=== PATIENT | female | born 1970 | race Hispanic/Latino ===

== ENCOUNTER 2018-07-12 07:57 | Inpatient (IN) | payer OTHER ==
[2018-07-09 14:32] VITALS: BMI 20.7
[2018-07-12 09:11] LABS: BASO % 0.4 % (0.0-2.0); EOS # 0.1 K/uL (0.0-0.7); EOS % 0.8 % (0.0-4.0); HEMOGLOBIN 14.3 g/dL (12.0-16.0); LYMPH # 1.4 K/uL (1.0-4.3); LYMPH % 19.7 % (20.0-40.0); MEAN CELL VOLUME 91.2 fl (81.0-99.0); MEAN CORPUSCULAR HEMOGLOBIN 30.4 pg (27.0-31.0); MEAN CORPUSCULAR HGB CONC 33.3 g/dL (33.0-37.0); MEAN PLATELET VOLUME 8.1 fl (7.2-11.7); MONO # 0.5 K/uL (0.0-0.8); MONO % 7.4 % (0.0-10.0); NEUT # 5.2 K/uL (1.8-7.0); NEUT % 71.7 % (50.0-75.0); NRBC % 0.1 % (0.0-0.0); RBC 4.71 Mil/uL (3.80-5.20); RED CELL DISTRIBUTION WIDTH 13.6 % (11.5-14.5); WHITE BLOOD COUNT 7.2 K/uL (4.8-10.8)
[2018-07-12] MEDS ORDERED: Propofol 10 mg/ml Inj (20 ML) ONE (11:33)
[2018-07-12] MEDS ORDERED: Midazolam 2 MG/2 ML VIAL ONE (11:34)
[2018-07-12] MEDS ORDERED: Succinylcholine 200 mg/10 ml Inj IV ONE (11:34)
[2018-07-12] MEDS ORDERED: Lidocaine 4% (Laryng-O-Jet) Kit MM ONE (11:34)
[2018-07-12] MEDS ORDERED: Rocuronium 10 mg/ml (5 ml) ONE (11:34)
[2018-07-12] MEDS ORDERED: ePHEDrine 50 mg/ml Inj ONE ×2 (11:34→13:34)
[2018-07-12] MEDS ORDERED: ceFAZolin IV 1 gm in Dextrose 2 GM/100 ML BAG IVPB ONE (11:53)
[2018-07-12] MEDS ORDERED: Bupivacaine 0.5% Inj(30mL) ONE (11:53)
[2018-07-12] MEDS ORDERED: Lactated Ringer's 1,000 ML IV ONE ×4 (12:55→15:30)
[2018-07-12] MEDS ORDERED: Dexamethasone 4 mg/1 ml ONE (13:12)
[2018-07-12] MEDS ORDERED: Sodium Chloride 0.9% 1,000 ML IV ONE (14:30)
[2018-07-12] MEDS ORDERED: metroNIDAZOLE 500mg/100ml NS 100 ML IVPB ONE (15:08)
[2018-07-12] MEDS ORDERED: Neostigmine 1:1000 (1 mg/ml) Inj ONE (15:28)
[2018-07-12] MEDS ORDERED: Silver Nitrate Topical - Stick TOP ONE (15:30)
[2018-07-12] MEDS ORDERED: Trimethobenzamide 200 mg/2 mL Inj IM ONE (16:12)
[2018-07-12] MEDS ORDERED: Naloxone 0.4 mg/ml Inj (Adult) IVP PRN (16:13)
[2018-07-12] MEDS: HYDROmorphone 0.5 mg/0.5 ml ISec IVP PRN ×3 (16:13→17:42)
[2018-07-12] MEDS ORDERED: Lactated Ringer's 1,000 ML IV SCH (16:15)
[2018-07-12] MEDS ORDERED: Enoxaparin 30 mg Syringe SC SCH (17:00)
[2018-07-12] MEDS ORDERED: cefOXitin 2 GM in Sodium Chloride 0.9% 100 ML IVPB ONE (19:00)
[2018-07-12] MEDS: Enoxaparin 30 mg Syringe SC SCH (20:54)
[2018-07-13] MEDS: Lactated Ringer's 1,000 ML IV SCH ×3 (02:15→20:31)
[2018-07-13 05:55] LABS: INR 1.2; PROTHROMBIN TIME 13.1 Seconds (9.8-13.1)
[2018-07-13 05:58] LABS: PARTIAL THROMBOPLASTIN TIME 30.7 Seconds (25.6-37.1)
[2018-07-13 06:02] LABS: BLOOD UREA NITROGEN 9 mg/dl (7-17); CALCIUM 7.9 mg/dL (8.4-10.2); GFR NON-AFRICAN AMERICAN > 60
[2018-07-13 06:04] LABS: BASO % 0.2 % (0.0-2.0); LYMPH # 0.8 K/uL (1.0-4.3); LYMPH % 11.2 % (20.0-40.0); MEAN CELL VOLUME 91.7 fl (81.0-99.0); MEAN CORPUSCULAR HEMOGLOBIN 30.6 pg (27.0-31.0); MEAN CORPUSCULAR HGB CONC 33.4 g/dL (33.0-37.0); MEAN PLATELET VOLUME 8.3 fl (7.2-11.7); MONO # 0.7 K/uL (0.0-0.8); MONO % 9.8 % (0.0-10.0); NEUT # 5.6 K/uL (1.8-7.0); NEUT % 78.8 % (50.0-75.0); RBC 3.4 Mil/uL (3.80-5.20); RED CELL DISTRIBUTION WIDTH 13.5 % (11.5-14.5); WHITE BLOOD COUNT 7.1 K/uL (4.8-10.8)
[2018-07-13 06:07] LABS: HEMOGLOBIN 10.4 g/dL (12.0-16.0)
--- NOTE | 2018-07-13 07:37 | CP.PCM.PN ---
Subjective - Date & Time of Evaluation Date of Evaluation: 07/13/18 Time of Evaluation: 07:33 - Subjective Subjective: Surgery: Dr. Geiger Pt seen and examined. No acute events overnight. Pt has some pain, responds to meds. She states that she is thirsty. No Flatus/BM yet. Objective - Vital Signs/Intake and Output Vital Signs (last 24 hours): Temp Pulse Resp BP Pulse Ox 99 F 67 18 96/54 L 100 07/13/18 00:00 07/13/18 06:00 07/13/18 06:00 07/13/18 06:00 07/13/18 06:00 Intake and Output: 07/13/18 07/13/18 06:59 18:59 Intake Total 1450 Output Total 500 Balance 950 - Medications Medications: Current Medications Enoxaparin Sodium (Lovenox) 30 mg SC BID@0900,2100 [facility]; Protocol Last Admin: 07/12/18 20:54 Dose: 30 mg Hydromorphone HCl (Dilaudid 0.2 Mg/Ml Public Policy Professor) 0 mg IV PRN PRN; Protocol PRN Reason: Pain, moderate (4-7) Last Admin: 07/12/18 18:08 Dose: 0 mg Acetaminophen (Ofirmev) 100 mls @ 400 mls/hr IVPB Q6H [facility]; Protocol Stop: 07/13/18 15:16 Last Admin: 07/13/18 03:00 Dose: 400 mls/hr Lactated Ringer's (Lactated Ringer's) 1,000 mls @ 100 mls/hr IV .Q10H [facility] Last Admin: 07/13/18 02:15 Dose: 100 mls/hr Lactated Ringer's (Lactated Ringer's) 1,000 mls @ 100 mls/hr IV .Q10H [facility] Last Admin: 07/13/18 02:15 Dose: Not Given Naloxone HCl (Narcan) 0.1 mg IVP Q2M PRN PRN Reason: Shortness of Breath Ondansetron HCl (Zofran Inj) 4 mg IVP Q6 PRN PRN Reason: Nausea/Vomiting - Labs Labs: 07/13/18 04:45 07/13/18 04:45 PT 13.1 Seconds (9.8-13.1) 07/13/18 04:45 INR 1.2 07/13/18 04:45 APTT 30.7 Seconds (25.6-37.1) 07/13/18 04:45 - Constitutional Appears: Non-toxic, No Acute Distress - Head Exam Head Exam: ATRAUMATIC, NORMOCEPHALIC - Eye Exam Eye Exam: EOMI - ENT Exam ENT Exam: Mucous Membranes Moist - Neck Exam Neck Exam: Full ROM - Respiratory Exam Respiratory Exam: NORMAL BREATHING PATTERN. absent: Accessory Muscle Use, Respiratory Distress - GI/Abdominal Exam GI & Abdominal Exam: Soft, Tenderness (armando-incisional ). absent: Distended, Firm, Guarding, Rigid, Rebound - Extremities Exam Extremities Exam: absent: Calf Tenderness, Pedal Edema - Neurological Exam Neurological Exam: Alert, Awake, Oriented x3 - Psychiatric Exam Psychiatric exam: Normal Affect, Normal Mood - Skin Skin Exam: Dry, Normal Color, Warm Assessment and Plan - Assessment and Plan (Free Text) Assessment: 47F POD#1 robotic assisted removal of endometrial implants, sigmoidectomy, and repair of iliac vein injury -will start CLD -1L NS bolus -c/w pain management -encourage OOB to chair/ambulation and IS use -d/w attending Zemaitis PGY4
[2018-07-13] MEDS ORDERED: Sodium Chloride 0.9% 1,000 ML IV SCH (07:45)
--- NOTE | 2018-07-13 07:45 | OP ---
PROCEDURE DATE: 07/12/2018 SURGEON: Jesus Hurst MD INVESTMENT ACCOUNTANT: Greg Geiger MD ANESTHESIOLOGIST: Maria Fernanda GARCIA,Moncho Osei MD, [place] TYPE OF ANESTHESIA: General endotracheal. PREOPERATIVE DIAGNOSES: 1. Incapacitating pelvic pain. 2. Incapacitating abdominal pain. 3. Abnormal uterine bleeding. 4. History of pelvic endometriosis. 5. History of previously failed medical and surgical therapy. 6. Gastrointestinal and genitourinary symptoms. 7. Rule out interstitial cystitis. 8. History of severe endometriosis and pelvic adhesions 9: right ovarian endometrioma 11: recurrent diverticulitis/diverticulosis POSTOPERATIVE DIAGNOSES: 1. Incapacitating pelvic pain. 2. Incapacitating abdominal pain. 3. Abnormal uterine bleeding. 4. History of pelvic endometriosis. 5. History of previously failed medical and surgical therapy. 6. History of severe endometriosis and pelvic adhesions. 7. Gastrointestinal and genitourinary symptoms. 8. Mild ureteral distention. 9. right ovarian endometrioma 10: recurrent diverticulitis/diverticulosis PROCEDURES PERFORMED: 1. Exam under anesthesia. 2. Video assisted hysteroscopy. 3. Cystoscopy. 4. Bilateral ureteral catheterization and injection of IC-Green dye. 5. Robotic da Garret operative laparoscopy. 6. Treatment of endometriosis. 7. Excision of endometriosis. 8. Bilateral ureterolysis. 9. Bilateral ovariolysis. 10: right ovarian cystectomy Dr Geiger to dictate separately sigmoidectomy COMPLICATIONS: None. SAMPLES SENT: multiple samples containing endometriosis and ovarian cyst INDICATION FOR THE PROCEDURE AND CONSENT: The patient had a long history of pelvic pain, dysmenorrhea, dyspareunia, abdominal pain, and bladder pain. The patient had been thoroughly evaluated and counseled regarding the pros and cons of the procedure, the reasonable alternatives, and possible complications. She understood and accepted the risks involved. Literature was provided to the patient. The patient was understanding and given her history and per surgical exam, she was at high risk in an average patient. She accepted all the risks involved, and all the questions had been answered to her satisfaction. FINDINGS OF SURGERY: Genitalia: Normal external genitalia, cervix without lesion and polyps. Hysteroscopy: Hysteroscopy shows a clear uterine cavity with no polyps or masses noticed. Cystoscopy: The cystoscopy was performed to rule out endometriosis and also any interstitial cystitis and also injury. The bladder was normal with no evidence of stone, trigonitis, or cystitis. A positive jet flow was identified in both ureters. Laparoscopy: The upper abdomen appeared to be normal. Gallbladder was normal. Liver edges appeared to be normal. Ascending colon and transverse were normal. There was evidence of adhesions, fibrosis, and endometriosis of the rectovaginal and pelvic sidewalls. Both fallopian tubes appeared to be patent, although there was evidence of inflammation on the serosal surface of both fallopian tubes, and there was slight conglutination of both fimbriated ends although they both appeared to be functional. There was also evidence of mild hydroureters. DESCRIPTION OF THE PROCEDURE: Initiation of the case: After adequate anesthesia was obtained, the patient was placed in the dorsal lithotomy position, and with extreme care, placement of the patient with hyperextension and hyperflexing of the hips. At this point, the patient was prepped and draped. The surgeon was gowned and gloved. A timeout was taken according to the hospital procedure and the procedure was started. At this point, we performed cystoscopy, bilateral ureteral catheterization. A cystoscope was inserted into the bladder under direct visualization and the bladder was visualized. The bladder was free of lesions and tumors. There was no evidence of interstitial cystitis, and there was only mild amount of trigonitis. At this point, both ureters were identified and appeared to be in their normal anatomical position. At this point, utilizing an open 5-Estonian open-ended catheter, the left ureter was catheterized all the way to the distal ureter, and 5 mL of IC-Green was injected into this ureter. Similarly, the contralateral ureter was catheterized all the way to the distal ureter, and 5 mL of IC-Green was injected into the distal ureter. At this point, the stents were removed, and the cystoscope was removed, and the 16-Estonian Mckenna was inserted into the bladder. At this point, we proceeded with a hysteroscopy. A speculum was placed into vagina, and the anterior lip of the cervix was grasped. The cervix was dilated, and a hysteroscope was inserted into the cavity. The cavity appeared to be of normal size with no evidence of polyps, cysts, adenomyosis, or fibroids. At this point, we proceeded with placement of a trocar and docking of the da Garret Xi robot. The surgeon was re-gowned and gloved, and open laparoscopy was performed by making incision in the umbilicus and the fascia was incised. The peritoneum was entered in a blunt fashion, and the cannula was inserted under direct visualization. The abdomen was insufflated, and under direct visualization, three additional ports were inserted in the left upper quadrant, left mid quadrant, and right upper quadrant. At this point, the da Garret Xi robot was brought into the field and docked, and the instruments were inserted under direct visualization. All this with extreme care not to injure the bowel or another area. As per dictation, the upper abdomen appeared to be normal with no evidence of any lesions. At this point, we proceeded with a left ureterolysis. The ureter appeared to be dilated and was clearly identified utilizing IC-Green fluorescent technology. Anesthesia was made in the peritoneum at the top of the pelvic brim, and the incision was then carried down all the way opening the peritoneum all the way down from the pelvic brim, all the way down to the ovarian fossa, extending the incision below the ovary. It was a progressive dissection where the ureter was progressively lateralized and peritoneum was medialized, thus freeing the ureter all the way down to the cross of the uterine vessels. After this was done, the ureter was freed and lateralized, and a larger peritoneum which had been opened, was excised, and sent to pathology. At this point, with the aid of very slow process, I was able to elevate the ovary and proceed with ovariolysis. At this point, we proceeded with a left ovariolysis. The left ovary was adherent to the posterior aspect of the uterus. It was gently dissected in a step by step way. It was peeled off, the ovarian fossa, andan area of extensive fibrosis and endometriosis was exposed. At this point, we proceeded with a right ureterolysis. The ureter was identified again utilizing fluorescent technology on the right hand side and retroperitoneal space was entered, and a full dissection was performed,entering the retroperitoneal space and dissecting the ureter, removing the ureter laterally and the peritoneum medially. A full dissection was performed all the way down to the ovarian fossa and the crossing of the uterine arteries. An area of peritoneum containing endometriosis was dissected and sent to Pathology. At this point, we proceeded with a right ovariolysis. The right ovary was adherent to the peritoneum. It was gently elevated progressively, and dissected off from the peritoneal area. All this done with extreme care to preserve vascularization to the ovary. At this point, we proceeded with a right ovarian cystectomy An ovarian endometrioma was gently peeled of the right ovary and sent to pathology At this point, we proceeded with treatment of endometriosis and excision of endometriosis. On the left hand side, fibrosis, especially in the left ovarian fossa was excised. In a very progressive step by step fashion, we dissected off fibrosis containing endometriosis and freed up the whole area. The ureters which had been lateralized. Areas of fibrosis and endometriosis were also identified in the posterior cul-de-sac and in the rectovaginal space which was also affected with endometriosis and fibrosis. At this point, we handed the robotic console to Dr. Worthington from general surgery for continuation of the procedure. He will dictate separately. Natali GARCIA, Jesus GARDNER
[2018-07-13] MEDS: Enoxaparin 30 mg Syringe SC SCH ×2 (09:29→21:38)
[2018-07-13] MEDS ORDERED: METOPROLOL SUCCINATE 25 MG PO SCH (12:30)
--- NOTE | 2018-07-13 14:03 | US ---
Date of service: 07/13/2018 PROCEDURE: Bilateral lower extremity venous duplex Doppler. HISTORY: r/o LE DVT, s/p L iliac vein repair COMPARISON: None available. TECHNIQUE: Bilateral common femoral, superficial femoral, popliteal and posterior tibial veins were evaluated. Flow was assessed with color Doppler, compressibility, assessment of phasic flow and augmentation response. FINDINGS: COMMON FEMORAL VEIN: Right CFV: Unremarkable. Left CFV: Unremarkable. SUPERFICIAL FEMORAL VEIN: Right SFV: Unremarkable. Left SFV: Unremarkable. POPLITEAL VEIN: Right Popliteal: Unremarkable. Left Popliteal: Unremarkable. POSTERIOR TIBIAL VEIN: Right PTV: Unremarkable. Left PTV: Unremarkable. OTHER FINDINGS: None. IMPRESSION: No evidence of deep venous thrombosis.
[2018-07-13] MEDS: Metoprolol Succinate 25 mg XL Tab PO SCH (14:17)
[2018-07-14] MEDS: Lactated Ringer's 1,000 ML IV SCH (06:30)
[2018-07-14 07:19] LABS: BASO % 0.2 % (0.0-2.0); EOS % 0.1 % (0.0-4.0); LYMPH # 0.5 K/uL (1.0-4.3); MEAN CELL VOLUME 90.6 fl (81.0-99.0); MEAN CORPUSCULAR HGB CONC 34.2 g/dL (33.0-37.0); MEAN PLATELET VOLUME 7.8 fl (7.2-11.7); MONO # 0.3 K/uL (0.0-0.8); MONO % 5.4 % (0.0-10.0); NEUT # 4.3 K/uL (1.8-7.0); NEUT % 84.3 % (50.0-75.0); RBC 3.22 Mil/uL (3.80-5.20); RED CELL DISTRIBUTION WIDTH 13.2 % (11.5-14.5); WHITE BLOOD COUNT 5.1 K/uL (4.8-10.8)
[2018-07-14 07:39] LABS: BLOOD UREA NITROGEN 4 mg/dl (7-17); CALCIUM 8.1 mg/dL (8.4-10.2); GFR NON-AFRICAN AMERICAN > 60
--- NOTE | 2018-07-14 08:31 | CP.PCM.PN ---
Subjective - Date & Time of Evaluation Date of Evaluation: 07/14/18 Time of Evaluation: 07:01 - Subjective Subjective: Surgery Progress Note- Dr. Geiger Patient seen and examined at bedside. Have 2 episodes of serobilious, non-bloody emesis yesterday. Currently resolved w/ zofran and Tigan. Patient expressed this happens when on a CLD and using opiates. Pain currently controlled with Dilaudid BAR HELPER used only twice overnight. Passed flatus, no BM. CHERYL drain RLQ in place, 70cc/24hr serosang fluid. Denies Fevers/chills/chest pain/light headedness/dizziness/LOC/numbness/tingling in extremities. Objective - Vital Signs/Intake and Output Vital Signs (last 24 hours): Temp Pulse Resp BP Pulse Ox 100.1 F H 86 20 124/78 98 07/14/18 05:00 07/14/18 05:00 07/14/18 05:00 07/14/18 05:00 07/14/18 05:00 Intake and Output: 07/14/18 07/14/18 06:59 18:59 Intake Total 1250 Output Total 195 Balance 1055 - Medications Medications: Current Medications Enoxaparin Sodium (Lovenox) 30 mg SC BID@0900,2100 [facility]; Protocol Last Admin: 07/13/18 21:38 Dose: 30 mg Famotidine (Pepcid) 20 mg PO DAILY [facility] Last Admin: 07/13/18 14:17 Dose: 20 mg Lactated Ringer's (Lactated Ringer's) 1,000 mls @ 100 mls/hr IV .Q10H [facility] Last Admin: 07/14/18 06:30 Dose: 100 mls/hr Lactated Ringer's (Lactated Ringer's) 1,000 mls @ 100 mls/hr IV .Q10H [facility] Last Admin: 07/13/18 02:15 Dose: Not Given Metoprolol Succinate (Toprol Xl) 25 mg PO DAILY [facility] Last Admin: 07/13/18 14:17 Dose: 25 mg Naloxone HCl (Narcan) 0.1 mg IVP Q2M PRN PRN Reason: Shortness of Breath Ondansetron HCl (Zofran Inj) 4 mg IVP Q4 [facility] - Labs Labs: 07/14/18 05:30 07/14/18 05:30 PT 13.1 Seconds (9.8-13.1) 07/13/18 04:45 INR 1.2 07/13/18 04:45 APTT 30.7 Seconds (25.6-37.1) 07/13/18 04:45 - Constitutional Appears: Non-toxic, No Acute Distress - Head Exam Head Exam: ATRAUMATIC - Eye Exam Eye Exam: EOMI. absent: Scleral icterus - ENT Exam ENT Exam: Mucous Membranes Moist - Respiratory Exam Respiratory Exam: NORMAL BREATHING PATTERN. absent: Accessory Muscle Use, Respiratory Distress - Cardiovascular Exam Cardiovascular Exam: +S1, +S2. absent: Bradycardia, Tachycardia - GI/Abdominal Exam GI & Abdominal Exam: Soft, Tenderness (appropriately tender around incision), Normal Bowel Sounds. absent: Distended, Firm, Guarding, Rigid Additional comments: dressings C/D/I no strikethrough - Rectal Exam Rectal Exam: Deferred - Extremities Exam Extremities Exam: absent: Calf Tenderness - Neurological Exam Neurological Exam: Alert, Awake, Oriented x3 - Psychiatric Exam Psychiatric exam: Normal Affect - Skin Skin Exam: Intact, Warm Assessment and Plan - Assessment and Plan (Free Text) Assessment: 47F s/p robotic assisted removal of endometrial implants, sigmoidectomy, and repair of iliac vein injury on 07/12; POD#2 Plan: - Pain control PRN; will de-escalate from Dilaudid BAR HELPER - Encourage IS use - Monitor for bowel function - I/O; CHERYL drain - aggressive PT, OOB - CLD for now, will consider advancing once bowel function has returned. - monitor H/H PGY2
[2018-07-14] MEDS ORDERED: Potassium Chloride 20 mEq/15 ml LIQ UD PO ONE (09:14)
[2018-07-14] MEDS ORDERED: Potassium Chloride 20 mEq ER Tab PO ONE (09:14)
[2018-07-14] MEDS: Metoprolol Succinate 25 mg XL Tab PO SCH (10:44)
[2018-07-14] MEDS: Enoxaparin 30 mg Syringe SC SCH ×2 (10:48→21:17)
[2018-07-14] MEDS: Potassium Ch 20mEq in D5-1/2NS 1,000 ML IV SCH (18:59)
[2018-07-14] MEDS: oxyCODONE 5 mg Immediate Release Tab PO PRN (20:25)
[2018-07-15] MEDS: oxyCODONE 5 mg Immediate Release Tab PO PRN ×2 (01:49→11:42)
[2018-07-15 07:38] LABS: BLOOD UREA NITROGEN 4 mg/dl (7-17); CALCIUM 8.5 mg/dL (8.4-10.2); GFR NON-AFRICAN AMERICAN > 60
[2018-07-15] MEDS: Enoxaparin 30 mg Syringe SC SCH ×2 (08:25→20:59)
--- NOTE | 2018-07-15 08:28 | CP.PCM.PN ---
Subjective - Date & Time of Evaluation Date of Evaluation: 07/15/18 Time of Evaluation: 08:26 - Subjective Subjective: SURGERY PROGRESS NOTE FOR DR. DIAZ 47F seen and examined at bedside. No acute events overnight. Patient tolerating mechanical soft diet, denies any nausea or vomiting, denies any fevers or chills. Patient admits to flatus and passing clots per rectum. Denies stool bowel movements. She denies leg pain. Objective - Vital Signs/Intake and Output Vital Signs (last 24 hours): Temp Pulse Resp BP Pulse Ox 98.2 F 64 20 126/78 99 07/15/18 04:54 07/15/18 04:54 07/15/18 04:54 07/15/18 04:54 07/15/18 04:54 Intake and Output: 07/15/18 07/15/18 06:59 18:59 Intake Total Output Total Balance - Medications Medications: Current Medications Acetaminophen (Tylenol 325mg Tab) 650 mg PO Q8 [facility] Stop: 07/16/18 09:01 Last Admin: 07/15/18 01:00 EST Dose: Not Given Enoxaparin Sodium (Lovenox) 30 mg SC BID@0900,2100 [facility]; Protocol Last Admin: 07/15/18 08:25 Dose: 30 mg Famotidine (Pepcid) 20 mg PO DAILY [facility] Last Admin: 07/15/18 08:24 Dose: 20 mg Potassium Chloride/Dextrose/Sod Cl (Potassium Chl 20 Meq In D5-1/2ns) 1,000 mls @ 50 mls/hr IV .Q20H [facility] Stop: 07/15/18 17:46 Last Admin: 07/14/18 18:59 Dose: 50 mls/hr Ketorolac Tromethamine (Toradol) 30 mg IVP Q6 [facility] Stop: 07/16/18 04:01 Last Admin: 07/15/18 05:17 Dose: 30 mg Metoprolol Succinate (Toprol Xl) 25 mg PO DAILY [facility] Last Admin: 07/14/18 10:44 Dose: 25 mg Morphine Sulfate (Morphine) 4 mg IVP Q4 PRN PRN Reason: Pain, moderate (4-7) Naloxone HCl (Narcan) 0.1 mg IVP Q2M PRN PRN Reason: Shortness of Breath Ondansetron HCl (Zofran Inj) 4 mg IVP Q4 [facility] Last Admin: 07/15/18 08:24 Dose: 4 mg Oxycodone HCl (Oxycodone Immediate Release Tab) 5 mg PO Q6 PRN PRN Reason: Pain, moderate (4-7) Last Admin: 07/15/18 01:49 EST Dose: 5 mg - Labs Labs: 07/14/18 05:30 07/15/18 05:30 PT 13.1 Seconds (9.8-13.1) 07/13/18 04:45 INR 1.2 07/13/18 04:45 APTT 30.7 Seconds (25.6-37.1) 07/13/18 04:45 - Constitutional Appears: Non-toxic, No Acute Distress - Head Exam Head Exam: ATRAUMATIC - Eye Exam Eye Exam: EOMI, PERRL - Respiratory Exam Respiratory Exam: Clear to Ausculation Bilateral, NORMAL BREATHING PATTERN - Cardiovascular Exam Cardiovascular Exam: REGULAR RHYTHM, +S1, +S2 - GI/Abdominal Exam GI & Abdominal Exam: Soft. absent: Firm, Guarding, Rigid, Tenderness, Rebound Additional comments: dressings CDI Drain output - 150cc/24hrs serosanguinous - Extremities Exam Extremities Exam: absent: Pedal Edema, Tenderness - Neurological Exam Neurological Exam: Alert, Awake, Normal Gait, Oriented x3 - Skin Skin Exam: Dry, Intact, Normal Color, Warm Assessment and Plan - Assessment and Plan (Free Text) Assessment: 47F s/p robotic assisted removal of endometrial implants, sigmoidectomy, and r epair of iliac vein injury on 07/12; POD#3 Plan: Pain control Advance diet as tolerated Anti-emetics Monitor drain output Monitor for bowel functions Pending repeat lower extremity US to r/o DVT Further recs discuss with Dr. Fely Adler, PGY3
[2018-07-15] MEDS: Metoprolol Succinate 25 mg XL Tab PO SCH (09:44)
[2018-07-15] MEDS: Potassium Ch 20mEq in D5-1/2NS 1,000 ML IV SCH (17:08)
--- NOTE | 2018-07-16 07:36 | CP.PCM.PN ---
Subjective - Date & Time of Evaluation Date of Evaluation: 07/16/18 Time of Evaluation: 07:34 - Subjective Subjective: Surgery: Dr. Geiger Pt seen and examined. Resting comfortably in bed. Pain controlled. Tolerating regular diet. No vomiting. Passing flatus. No BM. Ambulating without difficulty. Objective - Vital Signs/Intake and Output Vital Signs (last 24 hours): Temp Pulse Resp BP Pulse Ox 98.4 F 81 20 140/79 100 07/16/18 04:37 07/16/18 04:37 07/16/18 04:37 07/16/18 04:37 07/16/18 04:37 Intake and Output: 07/16/18 07/16/18 06:59 18:59 Intake Total 550 Output Total 60 Balance 490 - Medications Medications: Current Medications Acetaminophen (Tylenol 325mg Tab) 650 mg PO Q8 [facility] Stop: 07/16/18 09:01 Last Admin: 07/16/18 00:57 Dose: Not Given Docusate Sodium (Colace) 100 mg PO TID [facility] Famotidine (Pepcid) 20 mg PO DAILY [facility] Last Admin: 07/15/18 08:24 Dose: 20 mg Metoprolol Succinate (Toprol Xl) 25 mg PO DAILY [facility] Last Admin: 07/15/18 09:44 Dose: 25 mg Morphine Sulfate (Morphine) 4 mg IVP Q4 PRN PRN Reason: Pain, moderate (4-7) Naloxone HCl (Narcan) 0.1 mg IVP Q2M PRN PRN Reason: Shortness of Breath Ondansetron HCl (Zofran Inj) 4 mg IVP Q4 PRN PRN Reason: Nausea/Vomiting Ondansetron HCl (Zofran Inj) 4 mg IVP Q4 PRN PRN Reason: Nausea/Vomiting Oxycodone HCl (Oxycodone Immediate Release Tab) 5 mg PO Q6 PRN PRN Reason: Pain, moderate (4-7) Last Admin: 07/15/18 11:42 Dose: 5 mg - Labs Labs: 07/14/18 05:30 07/15/18 05:30 PT 13.1 Seconds (9.8-13.1) 07/13/18 04:45 INR 1.2 07/13/18 04:45 APTT 30.7 Seconds (25.6-37.1) 07/13/18 04:45 - Constitutional Appears: Non-toxic, No Acute Distress - Head Exam Head Exam: ATRAUMATIC, NORMOCEPHALIC - Eye Exam Eye Exam: EOMI - ENT Exam ENT Exam: Mucous Membranes Moist - Respiratory Exam Respiratory Exam: NORMAL BREATHING PATTERN. absent: Accessory Muscle Use, Respiratory Distress - GI/Abdominal Exam GI & Abdominal Exam: Soft, Tenderness (armando-incisional ). absent: Distended, Firm, Guarding, Rigid, Rebound Additional comments: incisions C/D/I Chente RLQ 60cc/12hr serosang - Extremities Exam Extremities Exam: Pedal Edema. absent: Calf Tenderness Additional comments: distal pulse palpable - Neurological Exam Neurological Exam: Alert, Awake, Oriented x3 - Psychiatric Exam Psychiatric exam: Normal Affect, Normal Mood - Skin Skin Exam: Dry, Normal Color, Warm Assessment and Plan - Assessment and Plan (Free Text) Assessment: 47F s/p robotic assisted removal of endometrial implants, sigmoidectomy, and repair of iliac vein injury on 07/12; POD#4 -F/U duplex -monitor bowel fxn -c/w colace -encourage OOB and ambulation -d/w attending Iris PGY4
[2018-07-16] MEDS: Metoprolol Succinate 25 mg XL Tab PO SCH (09:20)
--- NOTE | 2018-07-16 09:29 | US ---
Date of service: 07/16/2018 PROCEDURE: Bilateral lower extremity venous duplex Doppler. HISTORY: s/p iliac vein repair COMPARISON: None available. TECHNIQUE: Bilateral common femoral, superficial femoral, popliteal and posterior tibial veins were evaluated. Flow was assessed with color Doppler, compressibility, assessment of phasic flow and augmentation response. FINDINGS: COMMON FEMORAL VEIN: Right CFV: Unremarkable. Left CFV: Unremarkable. SUPERFICIAL FEMORAL VEIN: Right SFV: Unremarkable. Left SFV: Unremarkable. POPLITEAL VEIN: Right Popliteal: Unremarkable. Left Popliteal: Unremarkable. POSTERIOR TIBIAL VEIN: Right PTV: Unremarkable. Left PTV: Unremarkable. OTHER FINDINGS: None. IMPRESSION: No sonographic evidence of deep venous thrombosis bilateral lower extremities.
[2018-07-16] MEDS ORDERED: Oxycodone/Acetaminophen 5/325 mg Tab PO PRN (12:32)
[2018-07-16] MEDS: Enoxaparin 30 mg Syringe SC SCH ×2 (16:06→21:55)
[2018-07-17] MEDS: Metoprolol Succinate 25 mg XL Tab PO SCH (09:44)
[2018-07-17] MEDS: Enoxaparin 30 mg Syringe SC SCH (09:45)
--- NOTE | 2018-07-17 09:50 | CP.PCM.PN ---
Subjective - Date & Time of Evaluation Date of Evaluation: 07/17/18 Time of Evaluation: 09:47 - Subjective Subjective: Surgery: Dr. Geiger Pt seen and examined. Resting comfortably in bed. Tolerating diet. No N/V/D. Passing flatus. No BM. Ambulating w. out difficulty. Objective - Vital Signs/Intake and Output Vital Signs (last 24 hours): Temp Pulse Resp BP Pulse Ox 99.5 F 82 20 130/85 98 07/17/18 05:00 07/17/18 09:44 07/17/18 05:00 07/17/18 09:44 07/17/18 05:00 Intake and Output: 07/17/18 07/17/18 06:59 18:59 Intake Total 980 Output Total 135 Balance 845 - Medications Medications: Current Medications Docusate Sodium (Colace) 100 mg PO TID [facility] Last Admin: 07/17/18 09:43 Dose: 100 mg Enoxaparin Sodium (Lovenox) 30 mg SC Q12 [facility]; Protocol Last Admin: 07/17/18 09:45 Dose: 30 mg Famotidine (Pepcid) 20 mg PO DAILY [facility] Last Admin: 07/17/18 09:44 Dose: 20 mg Metoprolol Succinate (Toprol Xl) 25 mg PO DAILY [facility] Last Admin: 07/17/18 09:44 Dose: 25 mg Naloxone HCl (Narcan) 0.1 mg IVP Q2M PRN PRN Reason: Shortness of Breath Ondansetron HCl (Zofran Inj) 4 mg IVP Q4 PRN PRN Reason: Nausea/Vomiting Ondansetron HCl (Zofran Inj) 4 mg IVP Q4 PRN PRN Reason: Nausea/Vomiting Oxycodone HCl (Oxycodone Immediate Release Tab) 5 mg PO Q6 PRN PRN Reason: Pain, moderate (4-7) Last Admin: 07/15/18 11:42 Dose: 5 mg Oxycodone/Acetaminophen (Percocet 5/325 Mg Tab) 1 tab PO Q6 PRN PRN Reason: pain Stop: 07/19/18 12:33 Last Admin: 07/16/18 12:58 Dose: 1 tab - Labs Labs: 07/14/18 05:30 07/15/18 05:30 PT 13.1 Seconds (9.8-13.1) 07/13/18 04:45 INR 1.2 07/13/18 04:45 APTT 30.7 Seconds (25.6-37.1) 07/13/18 04:45 - Constitutional Appears: Non-toxic, No Acute Distress - Head Exam Head Exam: ATRAUMATIC, NORMOCEPHALIC - Eye Exam Eye Exam: EOMI - ENT Exam ENT Exam: Mucous Membranes Moist - Neck Exam Neck Exam: Full ROM - Respiratory Exam Respiratory Exam: NORMAL BREATHING PATTERN. absent: Accessory Muscle Use, Respiratory Distress - GI/Abdominal Exam GI & Abdominal Exam: Soft, Tenderness (armando-incisional ). absent: Distended, Firm, Guarding, Rigid, Rebound - Extremities Exam Extremities Exam: absent: Calf Tenderness, Pedal Edema - Neurological Exam Neurological Exam: Alert, Awake, Oriented x3 Assessment and Plan - Assessment and Plan (Free Text) Assessment: 47F s/p robotic assisted removal of endometrial implants, sigmoidectomy, and repair of iliac vein injury on 07/12; POD#5 -Chente 40cc/12hr serosang, will D/C -U/S no DVT LE -clear for D/C from surgical standpoint -recommend baby ASA BID upon D/C until f/u appointment -d/w attending Zemaitis PGY4
[2018-07-17 10:33] LABS: HEMOGLOBIN 10.4 g/dL (12.0-16.0); MEAN CORPUSCULAR HEMOGLOBIN 30.7 pg (27.0-31.0); RBC 3.38 Mil/uL (3.80-5.20); RED CELL DISTRIBUTION WIDTH 13.6 % (11.5-14.5); WHITE BLOOD COUNT 3.8 K/uL (4.8-10.8)
[2018-07-17 10:42] LABS: BLOOD UREA NITROGEN 4 mg/dl (7-17); CALCIUM 8.5 mg/dL (8.4-10.2); GFR NON-AFRICAN AMERICAN > 60
[2018-07-17 10:43] VITALS: RESP 16; O2SAT 99
[2018-07-17 17:23] VITALS: BP 130/78; PULSE 78; TEMP 98.4
--- NOTE | 2018-07-19 11:27 | PCM.OP ---
Operative Report - Operative Report Date of Surgery/Procedure: 07/12/18 Time of Surgery/Procedure: 11:00 Surgeon: Dr. Greg Geiger Nailer Hand: Dr. Jesus Hurst Anesthesia/Sedation: general/Dr. Irving Pre-Operative Diagnosis: abdominal pain, ednometriosis and acute/chronic diverticulitis Post-Operative Diagnosis: Acte/Chronic diverticulitis Indication for Surgery: Acute/Chronic diverticulitis Operative Findings: Acute inflammation sigmoid colon involving the left ureter and left iliac vein Procedure/Operation Description: 1-left sigmoid colectomy with takedown splenic flexure 2-Repair iliac vein 3-left ureterolysis Brief History: This 89 year old woman was admitted by Dr. Hurst with history of endometriosis and multiple episodes of abdominal pain from acute diverticulitis with multiple hospitalizations when she was treated expectantly with antibiotics. Presently the symptoms had persisted and she has persistent abdominal and pelvic pain. Dr. Hurst intiated the robotic procedure and requested an intraoperative consultation to evaluate the sigmoid colon. Description of the Procedure: The patient had already been brought to the operating room by Dr. Hurst (separate dictation Dr. Hurst). After taking control of the robotic console the sigmoid colon was mobilized from the proximal colon distally and the retroperitoneum was entered and the left ureter was carefully dissected and from the colon. The dissection continued inferiorly and distally with exposure of the left iliac vein. During the dissection a small rent was noted in the left iliac vein and immediately clamped. The robot was disconnected, trocars were removed and the left iliac vein was repaired with multiple interrupted 3-0 vicryl sutures. Hemostasis was achieved and deemed adequate. The sigmoid and a portion of the descending colon were further mobilized to the level of the splenic flexure. The rectum was mobilized in a similar fashion. The colon was transected both distally and proximally with CATRACHITA stapler. The mesentery was dissected with Ligasure and the specimen was removed and sent to pathology separately. The colon anastomosis was created in two layers with continuous 3-0 vicryl for the mucosa and interrupted 3-0 vicryl for the serosa. Hmostasis was deemed adeqaute and all counts were correct. A 19F Chente drain was placed and secured to the skin with 3-0 nylon. The fascia was closed with 0PDS and 4-0 monocryl for the skin. A clean dressing was applied and the patient was awakened, extubated and brought to the recovery room in stable condition. Estimated Blood Loss: 250 cc Drains: Chente 19F Complications: none Specimen: left sigmoid colon Discharge & Condition: stable
== END 2018-07-17 16:45 | disposition home or self-care (01) | DRG 742 ==
LOC: H.OPSURG 07:57 → H.ICU/CCU 16:08 → H.PEDS 07-13 16:20
PROVIDERS: ADMIT Obstetrics & Gynecology Reproductive Endocrinology; ATTEND Obstetrics & Gynecology Reproductive Endocrinology
PROC: 0UN20ZZ Release Bilateral Ovaries, Open Approach (ICD-10-PCS; 2018-07-12)
PROC: 0TN70ZZ Release Left Ureter, Open Approach (ICD-10-PCS; 2018-07-12)
PROC: 0TN60ZZ Release Right Ureter, Open Approach (ICD-10-PCS; 2018-07-12)
PROC: 06QD0ZZ Repair Left Common Iliac Vein, Open Approach (ICD-10-PCS; 2018-07-12)
PROC: 0TJB8ZZ Inspection of Bladder, Via Natural or Artificial Opening Endoscopic (ICD-10-PCS; 2018-07-12)
PROC: 8E0W0CZ Robotic Assisted Procedure of Trunk Region, Open Approach (ICD-10-PCS; 2018-07-12)
PROC: 0UB00ZZ Excision of Right Ovary, Open Approach (ICD-10-PCS; principal; 2018-07-12 11:00)
PROC: 0DTN0ZZ Resection of Sigmoid Colon, Open Approach (ICD-10-PCS; 2018-07-12 11:00)
PROC: 0DBW0ZZ Excision of Peritoneum, Open Approach (ICD-10-PCS; 2018-07-12 11:00)
DX: N80.3 Endometriosis of pelvic peritoneum (principal); S35.515A Injury of left iliac vein, initial encounter; K57.92 Diverticulitis of intestine, part unspecified, without perforation or abscess without bleeding; N13.4 Hydroureter; N80.1 Endometriosis of ovary; N83.11 Corpus luteum cyst of right ovary; N73.6 Female pelvic peritoneal adhesions (postinfective); N93.8 Other specified abnormal uterine and vaginal bleeding; Y83.8 Other surgical procedures as the cause of abnormal reaction of the patient, or of later complication, without mention of misadventure at the time of the procedure